=== PATIENT | female | born 1960 | race Caucasian/White ===

== ENCOUNTER 2023-06-25 22:50 | Inpatient (IN) | payer MEDICAID ==
[~2023-06-25] VITALS: Ht 167.6 cm; Wt 84.4 kg
[2023-06-25 22:56] VITALS: BP_SYST 131; PULSE 75; RESP 18; TEMP 96.5; O2SAT 95
[2023-06-25] MEDS ORDERED: NACL 0.9% 1,000 ML IV ONE (23:15)
[2023-06-26 01:05] LABS: BASOPHILS % (AUTO) 0.1 % (0.0-2.0); EOSINOPHILS % (AUTO) 0.1 % (0.0-4.0); HEMATOCRIT 35.5 % (36-48); HEMOGLOBIN 11.3 g/dL (12.0-16.0); LYMPHOCYTES # (AUTO) 1.1 K/uL (1.0-5.5); LYMPHOCYTES % (AUTO) 10.7 % (20.5-51.5); MEAN CORPUSCULAR HEMOGLOBIN 24 pg (27-31); MEAN CORPUSCULAR HGB CONC 32 % (32-36); MEAN CORPUSCULAR VOLUME 77 fL (79.0-98.0); MONOCYTES # (AUTO) 1.2 K/uL (0.0-1.0); MONOCYTES % (AUTO) 11.3 % (1.7-9.3); NEUTROPHILS # (AUTO) 8.3 K/uL (1.8-7.7); NEUTROPHILS % (AUTO) 77.8 % (40.0-70.0); PLATELET COUNT (AUTO) 190 K/uL (130-430); RED BLOOD CELL COUNT(AUTO) 4.63 MIL/uL (4.2-6.2); WHITE BLOOD COUNT (AUTO) 10.7 K/uL (4.8-10.8)
[2023-06-26] MEDS ORDERED: iohexoL 350 mgI/mL, 100 ML INFUS..BTL IV ONE (01:10)
[2023-06-26 01:57] LABS: ALANINE AMINOTRANSFERASE 108 U/L (12-78); ALBUMIN 2.6 g/dL (3.4-4.8); ANION GAP 15 (5-15); ASPARTATE AMINOTRANSFERASE 369 U/L (10-37); CALCIUM 7.7 mg/dL (8.4-11.0); CARBON DIOXIDE 19 mmol/L (23-29); CHLORIDE 93 mmol/L (98-107); CREATININE 1.79 mg/dL (0.55-1.30); GFR AFRICAN AMERICAN 37 mL/min (>90); GLUCOSE 88 mg/dL (74-106); POTASSIUM 3.9 mmol/L (3.5-5.1); SODIUM SERUM 127 mmol/L (136-145); TOTAL BILIRUBIN 0.6 mg/dL (0.0-1.0); TOTAL PROTEIN, SERUM 6.9 g/dL (6.4-8.3); UREA NITROGEN, BLOOD 48 mg/dL (8-21)
[2023-06-26 02:01] LABS: GFR NON AFRICAN-AMERICAN 30 mL/min (>90)
[2023-06-26] MEDS ORDERED: FLUT1DIS3 INH (05:40)
[2023-06-26] MEDS ORDERED: PANT20TA2 PO (05:49)
[2023-06-26] MEDS ORDERED: HYDR25TA4 PO (05:49)
[2023-06-26] MEDS ORDERED: GABA-534 PO (05:49)
[2023-06-26] MEDS ORDERED: HYDR-3927 PO (05:49)
[2023-06-26] MEDS ORDERED: BUPR-48 PO (05:49)
[2023-06-26] MEDS ORDERED: LEVO88TA5 PO (05:49)
[2023-06-26] MEDS ORDERED: ESTR0.623 PO (05:49)
[2023-06-26] MEDS ORDERED: METH-634 PO (05:49)
[2023-06-26] MEDS ORDERED: CEL20 PO (05:49)
[2023-06-26 09:39] LABS: INR 0.9 (0.8-1.2); PROTHROMBIN TIME 9.2 SECS (9.5-12.5)
[2023-06-26 09:54] LABS: CREATINE KINASE, TOTAL 6514 U/L (26-192)
[2023-06-26 09:57] LABS: ALCOHOL, BLOOD < 3 mg/dL (<10)
[2023-06-26 10:20] LABS: CKMB RELATIVE INDEX 0.4 (0.0-2.9); CREATINE KINASE MB 24.2 ng/mL (0-3.6)
[2023-06-26] MEDS ORDERED: ACETAMINOPHEN 325 MG TABLET PO PRN (10:45)
[2023-06-26] MEDS ORDERED: NALOXONE HCL 0.4 MG/ML AMP (NARCAN) IVP PRN (10:45)
[2023-06-26 11:41] LABS: ALBUMIN 2.7 g/dL (3.4-4.8); BILIRUBIN,DIRECT 0.2 mg/dL (0.0-0.3); TOTAL BILIRUBIN 0.5 mg/dL (0.0-1.0); TOTAL PROTEIN, SERUM 7.9 g/dL (6.4-8.3)
[2023-06-26 12:00] VITALS: BP_SYST 121; PULSE 73; RESP 18; TEMP 98.8; O2SAT 96
[2023-06-26 12:38] LABS: BILIRUBIN,URINE NEGATIVE (NEGATIVE); BLOOD, URINE 3+ (NEGATIVE); CLARITY/URINE Clear (CLEAR); COLOR,URINE YELLOW (YELLOW); GLUCOSE,URINE NEGATIVE (NEGATIVE); KETONES,URINE 1+ (NEGATIVE); LEUKOCYTE ESTERASE ,URINE NEGATIVE (NEGATIVE); NITRITE, URINE NEGATIVE (NEGATIVE); PH,URINE 5.5 (5.0-8.0); PROTEIN URINE 1+ (NEGATIVE); UROBILINOGEN,URINE 0.2 (0.2-1.0)
[2023-06-26 13:03] LABS: BACTERIA,URINE FEW /HPF (None Seen); WBC,URINE 0-3 /HPF (0-3)
[2023-06-26 13:10] VITALS: BP_SYST 121; PULSE 73; RESP 18; TEMP 98.8
[2023-06-26 13:21] LABS: BARBITURATE, URINE NEGATIVE (NEG <=200)
[2023-06-26 13:22] LABS: BENZODIAZEPINE, URINE NEGATIVE (NEG <=150); CANNABINOID, URINE NEGATIVE (NEG <=50); COCAINE, URINE NEGATIVE (NEG <=150); METHAMPHETAMINES SCREEN,URINE POSITIVE (NEG <=500); OPIATE, URINE POSITIVE (NEG <=100); PHENCYCLIDINE SCREEN,URINE NEGATIVE (NEG <=25); URINE AMPHETAMINE POSITIVE (NEG <=500); URINE METHADONE NEGATIVE (NEG <=200)
[2023-06-26 13:23] LABS: URINE OXYCODONE SCREEN NEGATIVE (NEG <=100); URINE PROPOXYPHENE SCREEN NEGATIVE (NEG <=300)
[2023-06-26 13:24] LABS: UR TRICYCLIC ANTIDEPRESSANTS NEGATIVE (NEG <=300)
[2023-06-26] MEDS: HYDROcodone/ACETAMIN 10-325 MG TAB PO PRN ×2 (14:11→21:06)
[2023-06-26] MEDS: D5NS 1,000 ML IV SCH ×2 (15:45→17:26)
[2023-06-26 16:00] VITALS: BP_SYST 122; PULSE 75; RESP 18; TEMP 98.6; O2SAT 97
[2023-06-26] MEDS ORDERED: ONDANSETRON HCL 4 MG/2 ML VIAL IVP PRN (18:30)
[2023-06-26 20:00] VITALS: BP_SYST 135; PULSE 71; RESP 18; TEMP 97.6; O2SAT 96
[2023-06-26 20:22] VITALS: BP_SYST 122; PULSE 75; O2SAT 97
[2023-06-26] MEDS ORDERED: FLUTICASONE 250 mCg/SALMETEROL 50 mCg DISKUS W.DEV INH SCH (21:00)
[2023-06-26] MEDS: methocarbamoL 500 MG TABLET PO SCH (21:06)
[2023-06-26] MEDS: GABAPENTIN 300 MG CAPSULE PO SCH (21:06)
[2023-06-26] MEDS: LORazepam 2 MG/ML VIAL IVP PRN (21:50)
[2023-06-27] MEDS: D5NS 1,000 ML IV SCH ×3 (01:45→20:51)
[2023-06-27] MEDS: HYDROcodone/ACETAMIN 10-325 MG TAB PO PRN ×4 (02:12→15:44)
[2023-06-27] MEDS: LEVOTHYROXINE SODIUM 0.088 MG TABLET PO SCH (06:26)
[2023-06-27] MEDS: BUDESONIDE 0.5 MG/2 ML AMPUL.NEB INH SCH ×2 (07:00→19:00)
[2023-06-27] MEDS: ALBUTEROL SULFATE 0.083% 2.5 MG/3 ML VIAL.NEB INH SCH ×3 (07:00→19:00)
[2023-06-27 07:44] VITALS: O2SAT 96
[2023-06-27 08:00] VITALS: BP_SYST 115; PULSE 69; RESP 16; TEMP 97.5; O2SAT 95
[2023-06-27] MEDS ORDERED: HYDROCHLOROTHIAZIDE 25 MG TABLET (HCTZ) PO SCH (09:00)
[2023-06-27] MEDS ORDERED: ESTROGENS,CONJUGATED 0.625 MG TABLET PO SCH (09:00)
[2023-06-27] MEDS: methocarbamoL 500 MG TABLET PO SCH ×2 (09:38→20:50)
[2023-06-27] MEDS: buPROPion HCL 150 MG XL TAB PO SCH (09:38)
[2023-06-27] MEDS: PANTOPRAZOLE SODIUM 40 MG TAB PO SCH (09:39)
[2023-06-27] MEDS: CITALOPRAM HYDROBROMIDE 20 MG TABLET PO SCH (09:39)
[2023-06-27] MEDS: GABAPENTIN 300 MG CAPSULE PO SCH ×2 (09:40→20:50)
[2023-06-27] MEDS: PREMARIN 0.625 MG PO SCH (09:50)
[2023-06-27 10:56] LABS: INR 0.9 (0.8-1.2); PROTHROMBIN TIME 9.1 SECS (9.5-12.5)
[2023-06-27 11:07] LABS: BASOPHILS % (AUTO) 0.2 % (0.0-2.0); EOSINOPHILS # (AUTO) 0.1 K/uL (0.0-0.4); EOSINOPHILS % (AUTO) 0.8 % (0.0-4.0); HEMATOCRIT 36.7 % (36-48); HEMOGLOBIN 11.6 g/dL (12.0-16.0); LYMPHOCYTES % (AUTO) 12.4 % (20.5-51.5); MEAN CORPUSCULAR HEMOGLOBIN 24 pg (27-31); MEAN CORPUSCULAR HGB CONC 32 % (32-36); MEAN CORPUSCULAR VOLUME 76 fL (79.0-98.0); MONOCYTES # (AUTO) 0.5 K/uL (0.0-1.0); MONOCYTES % (AUTO) 6.5 % (1.7-9.3); NEUTROPHILS # (AUTO) 6.4 K/uL (1.8-7.7); NEUTROPHILS % (AUTO) 80.1 % (40.0-70.0); PLATELET COUNT (AUTO) 198 K/uL (130-430); RED BLOOD CELL COUNT(AUTO) 4.81 MIL/uL (4.2-6.2); RED CELL DISTRIBUTION WIDTH 18.6 % (9.0-15.0)
[2023-06-27 11:12] LABS: ALBUMIN 2.5 g/dL (3.4-4.8); CALCIUM 8.8 mg/dL (8.4-11.0); CREATININE 0.8 mg/dL (0.55-1.30); PHOSPHORUS 1.6 mg/dL (2.7-4.5); POTASSIUM 3.5 mmol/L (3.5-5.1); TOTAL BILIRUBIN 0.5 mg/dL (0.0-1.0); TOTAL PROTEIN, SERUM 7.9 g/dL (6.4-8.3)
[2023-06-27 11:34] LABS: CKMB RELATIVE INDEX 0.3 (0.0-2.9); CREATINE KINASE MB 6.9 ng/mL (0-3.6)
[2023-06-27 12:00] VITALS: BP_SYST 126; PULSE 68; RESP 18; TEMP 97; O2SAT 95
[2023-06-27 12:06] LABS: HEPATITIS A AB, IgM Negative (Negative); HEPATITIS B CORE AB, IgM Negative (Negative); HEPATITIS B SURFACE AG Negative (Negative)
[2023-06-27] MEDS ORDERED: NA PHOS 15 MM in NS 250 ML IV ONE (14:30)
[2023-06-27 16:00] VITALS: BP_SYST 113; PULSE 63; RESP 18; TEMP 96.6; O2SAT 95
[2023-06-27 20:00] VITALS: BP_SYST 106; PULSE 63; TEMP 98.9; O2SAT 96
[2023-06-27] MEDS: TEMAZEPAM 15 MG CAPSULE PO PRN (20:49)
[2023-06-28] MEDS: HYDROcodone/ACETAMIN 10-325 MG TAB PO PRN ×4 (00:32→21:51)
[2023-06-28] MEDS: ALBUTEROL SULFATE 0.083% 2.5 MG/3 ML VIAL.NEB INH SCH ×4 (01:00→19:00)
[2023-06-28 01:19] VITALS: BP_SYST 98; PULSE 63; RESP 16; TEMP 97.1; O2SAT 96
[2023-06-28 05:50] LABS: BASOPHILS % (AUTO) 0.4 % (0.0-2.0); EOSINOPHILS # (AUTO) 0.1 K/uL (0.0-0.4); EOSINOPHILS % (AUTO) 1.6 % (0.0-4.0); HEMOGLOBIN 10.7 g/dL (12.0-16.0); LYMPHOCYTES # (AUTO) 1.8 K/uL (1.0-5.5); LYMPHOCYTES % (AUTO) 24.7 % (20.5-51.5); MEAN CORPUSCULAR HEMOGLOBIN 24 pg (27-31); MEAN CORPUSCULAR HGB CONC 32 % (32-36); MEAN CORPUSCULAR VOLUME 77 fL (79.0-98.0); MONOCYTES # (AUTO) 0.8 K/uL (0.0-1.0); MONOCYTES % (AUTO) 10.5 % (1.7-9.3); NEUTROPHILS # (AUTO) 4.7 K/uL (1.8-7.7); NEUTROPHILS % (AUTO) 62.8 % (40.0-70.0); PLATELET COUNT (AUTO) 210 K/uL (130-430); RED BLOOD CELL COUNT(AUTO) 4.44 MIL/uL (4.2-6.2); RED CELL DISTRIBUTION WIDTH 18.3 % (9.0-15.0); WHITE BLOOD COUNT (AUTO) 7.5 K/uL (4.8-10.8)
[2023-06-28] MEDS: LEVOTHYROXINE SODIUM 0.088 MG TABLET PO SCH (06:15)
[2023-06-28 06:24] LABS: CALCIUM 8.1 mg/dL (8.4-11.0); CREATININE 0.64 mg/dL (0.55-1.30); PHOSPHORUS 2.4 mg/dL (2.7-4.5); POTASSIUM 3.1 mmol/L (3.5-5.1)
[2023-06-28 06:53] LABS: CKMB RELATIVE INDEX 0.3 (0.0-2.9); CREATINE KINASE MB 2.6 ng/mL (0-3.6)
[2023-06-28] MEDS: BUDESONIDE 0.5 MG/2 ML AMPUL.NEB INH SCH ×2 (07:00→19:00)
[2023-06-28 08:00] VITALS: BP_SYST 108; PULSE 71; RESP 18; TEMP 98.4; O2SAT 97
[2023-06-28] MEDS: methocarbamoL 500 MG TABLET PO SCH ×2 (09:34→20:50)
[2023-06-28] MEDS: PANTOPRAZOLE SODIUM 40 MG TAB PO SCH (09:35)
[2023-06-28] MEDS: PREMARIN 0.625 MG PO SCH (09:35)
[2023-06-28] MEDS: GABAPENTIN 300 MG CAPSULE PO SCH ×3 (09:35→20:50)
[2023-06-28] MEDS: buPROPion HCL 150 MG XL TAB PO SCH (09:35)
[2023-06-28] MEDS: CITALOPRAM HYDROBROMIDE 20 MG TABLET PO SCH (09:35)
[2023-06-28 12:00] VITALS: BP_SYST 142; PULSE 67; RESP 16; TEMP 98.4; O2SAT 98
[2023-06-28 16:00] VITALS: BP_SYST 135; PULSE 67; RESP 16; TEMP 98.4; O2SAT 96
[2023-06-28] MEDS ORDERED: K PHOS 30 MM in NS 250 ML IV ONE (16:00)
[2023-06-28] MEDS: LORazepam 2 MG/ML VIAL IVP PRN ×2 (16:38→20:49)
[2023-06-28] MEDS: D5NS 1,000 ML IV SCH (16:52)
[2023-06-28 20:00] VITALS: BP_SYST 125; PULSE 67; RESP 18; TEMP 97.7; O2SAT 94
[2023-06-28 20:32] VITALS: O2SAT 96
[2023-06-28] MEDS: TEMAZEPAM 15 MG CAPSULE PO PRN (23:07)
[2023-06-29] VITALS (7 sets, daily range): BP systolic 125–158; PULSE 67–80; RESP 16–18; TEMP 94.6–99.1; O2SAT 94–98
[2023-06-29] MEDS: ALBUTEROL SULFATE 0.083% 2.5 MG/3 ML VIAL.NEB INH SCH ×3 (00:45→13:00)
[2023-06-29] MEDS: LORazepam 2 MG/ML VIAL IVP PRN ×4 (02:12→23:16)
[2023-06-29 05:47] LABS: BASOPHILS % (AUTO) 0.4 % (0.0-2.0); EOSINOPHILS # (AUTO) 0.1 K/uL (0.0-0.4); EOSINOPHILS % (AUTO) 1.3 % (0.0-4.0); HEMATOCRIT 33.3 % (36-48); HEMOGLOBIN 10.5 g/dL (12.0-16.0); LYMPHOCYTES # (AUTO) 2.1 K/uL (1.0-5.5); LYMPHOCYTES % (AUTO) 31.6 % (20.5-51.5); MEAN CORPUSCULAR HEMOGLOBIN 24 pg (27-31); MEAN CORPUSCULAR HGB CONC 32 % (32-36); MEAN CORPUSCULAR VOLUME 77 fL (79.0-98.0); MONOCYTES # (AUTO) 0.8 K/uL (0.0-1.0); MONOCYTES % (AUTO) 11.4 % (1.7-9.3); NEUTROPHILS # (AUTO) 3.7 K/uL (1.8-7.7); NEUTROPHILS % (AUTO) 55.3 % (40.0-70.0); PLATELET COUNT (AUTO) 196 K/uL (130-430); RED BLOOD CELL COUNT(AUTO) 4.36 MIL/uL (4.2-6.2); RED CELL DISTRIBUTION WIDTH 18.3 % (9.0-15.0); WHITE BLOOD COUNT (AUTO) 6.8 K/uL (4.8-10.8)
[2023-06-29 05:59] LABS: CREATININE 0.56 mg/dL (0.55-1.30); PHOSPHORUS 3.2 mg/dL (2.7-4.5); POTASSIUM 3.5 mmol/L (3.5-5.1)
[2023-06-29 06:37] LABS: CKMB RELATIVE INDEX 0.3 (0.0-2.9)
[2023-06-29] MEDS: LEVOTHYROXINE SODIUM 0.088 MG TABLET PO SCH (06:48)
[2023-06-29] MEDS: D5NS 1,000 ML IV SCH (06:49)
[2023-06-29] MEDS: BUDESONIDE 0.5 MG/2 ML AMPUL.NEB INH SCH (07:00)
[2023-06-29] MEDS: HYDROcodone/ACETAMIN 10-325 MG TAB PO PRN ×4 (07:02→20:44)
[2023-06-29] MEDS: PANTOPRAZOLE SODIUM 40 MG TAB PO SCH (08:16)
[2023-06-29] MEDS: ENOXAPARIN SODIUM 40 MG/0.4 ML SYRINGE SUBCUT SCH (08:17)
[2023-06-29] MEDS: methocarbamoL 500 MG TABLET PO SCH ×2 (08:17→20:44)
[2023-06-29] MEDS: CITALOPRAM HYDROBROMIDE 20 MG TABLET PO SCH (08:17)
[2023-06-29] MEDS: GABAPENTIN 300 MG CAPSULE PO SCH ×3 (08:17→20:43)
[2023-06-29] MEDS: buPROPion HCL 150 MG XL TAB PO SCH (08:17)
[2023-06-29] MEDS: PREMARIN 0.625 MG PO SCH (09:01)
[2023-06-29] MEDS ORDERED: LORazepam 2 MG/ML VIAL ONE (18:42)
[2023-06-29] MEDS: TEMAZEPAM 15 MG CAPSULE PO PRN (21:21)
[2023-06-30 00:47] VITALS: BP_SYST 149; PULSE 70; RESP 16; TEMP 97.1; O2SAT 98
[2023-06-30] MEDS: LORazepam 2 MG/ML VIAL IVP PRN ×5 (04:00→23:27)
[2023-06-30 05:30] LABS: BASOPHILS % (AUTO) 0.4 % (0.0-2.0); EOSINOPHILS # (AUTO) 0.2 K/uL (0.0-0.4); EOSINOPHILS % (AUTO) 1.6 % (0.0-4.0); HEMATOCRIT 33.9 % (36-48); HEMOGLOBIN 10.8 g/dL (12.0-16.0); LYMPHOCYTES # (AUTO) 2.8 K/uL (1.0-5.5); LYMPHOCYTES % (AUTO) 28.6 % (20.5-51.5); MEAN CORPUSCULAR HEMOGLOBIN 24 pg (27-31); MEAN CORPUSCULAR HGB CONC 32 % (32-36); MEAN CORPUSCULAR VOLUME 76 fL (79.0-98.0); MONOCYTES % (AUTO) 9.9 % (1.7-9.3); NEUTROPHILS # (AUTO) 5.8 K/uL (1.8-7.7); NEUTROPHILS % (AUTO) 59.5 % (40.0-70.0); PLATELET COUNT (AUTO) 208 K/uL (130-430); RED BLOOD CELL COUNT(AUTO) 4.45 MIL/uL (4.2-6.2); RED CELL DISTRIBUTION WIDTH 18.8 % (9.0-15.0); WHITE BLOOD COUNT (AUTO) 9.7 K/uL (4.8-10.8)
[2023-06-30 06:15] LABS: ALBUMIN 2.3 g/dL (3.4-4.8); CALCIUM 8.8 mg/dL (8.4-11.0); CREATININE 0.58 mg/dL (0.55-1.30); PHOSPHORUS 3.4 mg/dL (2.7-4.5); POTASSIUM 4.2 mmol/L (3.5-5.1); TOTAL BILIRUBIN 0.3 mg/dL (0.0-1.0); TOTAL PROTEIN, SERUM 6.2 g/dL (6.4-8.3)
[2023-06-30] MEDS: LEVOTHYROXINE SODIUM 0.088 MG TABLET PO SCH (06:40)
[2023-06-30 07:00] VITALS: BP_SYST 149; PULSE 71; RESP 18; TEMP 98.5; O2SAT 97
[2023-06-30] MEDS: BUDESONIDE 0.5 MG/2 ML AMPUL.NEB INH SCH ×2 (07:00→19:00)
[2023-06-30] MEDS: ALBUTEROL SULFATE 0.083% 2.5 MG/3 ML VIAL.NEB INH SCH ×3 (07:00→19:00)
[2023-06-30 08:17] LABS: CKMB RELATIVE INDEX 0.6 (0.0-2.9); CREATINE KINASE MB 1.2 ng/mL (0-3.6)
[2023-06-30] MEDS: GABAPENTIN 300 MG CAPSULE PO SCH ×3 (08:38→20:56)
[2023-06-30] MEDS: CITALOPRAM HYDROBROMIDE 20 MG TABLET PO SCH (08:38)
[2023-06-30] MEDS: PANTOPRAZOLE SODIUM 40 MG TAB PO SCH (08:38)
[2023-06-30] MEDS: ENOXAPARIN SODIUM 40 MG/0.4 ML SYRINGE SUBCUT SCH ×2 (08:39→08:50)
[2023-06-30] MEDS: HYDROcodone/ACETAMIN 5-325 MG TAB (NORCO/ VICODIN) PO PRN (08:48)
[2023-06-30] MEDS: PREMARIN 0.625 MG PO SCH (09:00)
[2023-06-30] MEDS: buPROPion HCL 150 MG XL TAB PO SCH (09:00)
[2023-06-30] MEDS: methocarbamoL 500 MG TABLET PO SCH ×2 (10:43→20:55)
[2023-06-30 11:30] VITALS: BP_SYST 138; PULSE 73; RESP 19; TEMP 98.9; O2SAT 95
[2023-06-30] MEDS: HYDROcodone/ACETAMIN 10-325 MG TAB PO PRN ×2 (13:55→20:56)
[2023-06-30 16:31] VITALS: BP_SYST 160; PULSE 72; RESP 18; TEMP 98.4; O2SAT 94
[2023-06-30 20:00] VITALS: BP_SYST 155; PULSE 73; RESP 16; TEMP 98.2; O2SAT 73; O2SAT 96
[2023-06-30] MEDS: TEMAZEPAM 15 MG CAPSULE PO PRN (20:55)
[2023-07-01] VITALS (8 sets, daily range): BP systolic 120–154; PULSE 70–96; RESP 16–20; TEMP 97.3–98.8; O2SAT 94–100
[2023-07-01] MEDS: ALBUTEROL SULFATE 0.083% 2.5 MG/3 ML VIAL.NEB INH SCH ×3 (01:00→13:00)
[2023-07-01] MEDS: HYDROcodone/ACETAMIN 10-325 MG TAB PO PRN ×4 (04:28→18:45)
[2023-07-01 05:10] LABS: BASOPHILS % (AUTO) 0.3 % (0.0-2.0); EOSINOPHILS # (AUTO) 0.1 K/uL (0.0-0.4); EOSINOPHILS % (AUTO) 1.2 % (0.0-4.0); HEMATOCRIT 35.8 % (36-48); HEMOGLOBIN 11.2 g/dL (12.0-16.0); LYMPHOCYTES # (AUTO) 2.8 K/uL (1.0-5.5); LYMPHOCYTES % (AUTO) 25.7 % (20.5-51.5); MEAN CORPUSCULAR HEMOGLOBIN 24 pg (27-31); MEAN CORPUSCULAR HGB CONC 31 % (32-36); MEAN CORPUSCULAR VOLUME 77 fL (79.0-98.0); MONOCYTES # (AUTO) 0.9 K/uL (0.0-1.0); MONOCYTES % (AUTO) 8.3 % (1.7-9.3); NEUTROPHILS # (AUTO) 6.9 K/uL (1.8-7.7); NEUTROPHILS % (AUTO) 64.5 % (40.0-70.0); PLATELET COUNT (AUTO) 218 K/uL (130-430); RED BLOOD CELL COUNT(AUTO) 4.64 MIL/uL (4.2-6.2); RED CELL DISTRIBUTION WIDTH 18.6 % (9.0-15.0); WHITE BLOOD COUNT (AUTO) 10.7 K/uL (4.8-10.8)
[2023-07-01 05:19] LABS: CALCIUM 9.1 mg/dL (8.4-11.0); CREATININE 0.61 mg/dL (0.55-1.30); POTASSIUM 3.9 mmol/L (3.5-5.1)
[2023-07-01] MEDS: LORazepam 2 MG/ML VIAL IVP PRN ×4 (05:32→20:02)
[2023-07-01] MEDS: LEVOTHYROXINE SODIUM 0.088 MG TABLET PO SCH (06:06)
[2023-07-01] MEDS: BUDESONIDE 0.5 MG/2 ML AMPUL.NEB INH SCH (07:00)
[2023-07-01] MEDS: HYDROcodone/ACETAMIN 5-325 MG TAB (NORCO/ VICODIN) PO PRN ×2 (09:23→11:21)
[2023-07-01] MEDS: methocarbamoL 500 MG TABLET PO SCH ×2 (09:52→20:02)
[2023-07-01] MEDS: CITALOPRAM HYDROBROMIDE 20 MG TABLET PO SCH (09:52)
[2023-07-01] MEDS: GABAPENTIN 300 MG CAPSULE PO SCH ×3 (09:52→20:02)
[2023-07-01] MEDS: PANTOPRAZOLE SODIUM 40 MG TAB PO SCH (09:53)
[2023-07-01] MEDS: ENOXAPARIN SODIUM 40 MG/0.4 ML SYRINGE SUBCUT SCH (09:53)
[2023-07-01] MEDS: PREMARIN 0.625 MG PO SCH (09:54)
[2023-07-01] MEDS: buPROPion HCL 150 MG XL TAB PO SCH (11:15)
[2023-07-01] MEDS: TEMAZEPAM 15 MG CAPSULE PO PRN (22:59)
[2023-07-02] MEDS: HYDROcodone/ACETAMIN 10-325 MG TAB PO PRN ×5 (00:51→23:19)
[2023-07-02 02:02] VITALS: BP_SYST 141; PULSE 69; RESP 18; TEMP 97.4; O2SAT 94
[2023-07-02] MEDS: LORazepam 2 MG/ML VIAL IVP PRN ×3 (02:39→20:57)
[2023-07-02 06:10] LABS: BASOPHILS % (AUTO) 0.4 % (0.0-2.0); EOSINOPHILS # (AUTO) 0.2 K/uL (0.0-0.4); EOSINOPHILS % (AUTO) 2.5 % (0.0-4.0); HEMATOCRIT 34.5 % (36-48); HEMOGLOBIN 10.9 g/dL (12.0-16.0); LYMPHOCYTES # (AUTO) 2.4 K/uL (1.0-5.5); MEAN CORPUSCULAR HEMOGLOBIN 24 pg (27-31); MEAN CORPUSCULAR HGB CONC 32 % (32-36); MEAN CORPUSCULAR VOLUME 77 fL (79.0-98.0); MONOCYTES # (AUTO) 0.8 K/uL (0.0-1.0); MONOCYTES % (AUTO) 8.7 % (1.7-9.3); NEUTROPHILS # (AUTO) 5.3 K/uL (1.8-7.7); NEUTROPHILS % (AUTO) 60.4 % (40.0-70.0); PLATELET COUNT (AUTO) 201 K/uL (130-430); RED BLOOD CELL COUNT(AUTO) 4.48 MIL/uL (4.2-6.2); RED CELL DISTRIBUTION WIDTH 18.7 % (9.0-15.0); WHITE BLOOD COUNT (AUTO) 8.7 K/uL (4.8-10.8)
[2023-07-02] MEDS: BUDESONIDE 0.5 MG/2 ML AMPUL.NEB INH SCH (07:00)
[2023-07-02] MEDS: ALBUTEROL SULFATE 0.083% 2.5 MG/3 ML VIAL.NEB INH SCH ×2 (07:00→13:00)
[2023-07-02] MEDS: LEVOTHYROXINE SODIUM 0.088 MG TABLET PO SCH (07:02)
[2023-07-02 07:23] LABS: ALBUMIN 2.4 g/dL (3.4-4.8); CALCIUM 8.8 mg/dL (8.4-11.0); CREATININE 0.7 mg/dL (0.55-1.30); PHOSPHORUS 4.1 mg/dL (2.7-4.5); POTASSIUM 4.1 mmol/L (3.5-5.1); TOTAL BILIRUBIN 0.2 mg/dL (0.0-1.0); TOTAL PROTEIN, SERUM 6.2 g/dL (6.4-8.3)
[2023-07-02 08:37] VITALS: BP_SYST 140; PULSE 71; RESP 16; TEMP 97.5; O2SAT 94
[2023-07-02 09:07] LABS: HEPATITIS C VIRUS AB Reactive (Non Reactive)
[2023-07-02] MEDS: methocarbamoL 500 MG TABLET PO SCH ×2 (09:19→20:55)
[2023-07-02] MEDS: GABAPENTIN 300 MG CAPSULE PO SCH ×3 (09:20→20:55)
[2023-07-02] MEDS: buPROPion HCL 150 MG XL TAB PO SCH (09:20)
[2023-07-02] MEDS: CITALOPRAM HYDROBROMIDE 20 MG TABLET PO SCH (09:20)
[2023-07-02] MEDS: PANTOPRAZOLE SODIUM 40 MG TAB PO SCH (09:20)
[2023-07-02] MEDS: ENOXAPARIN SODIUM 40 MG/0.4 ML SYRINGE SUBCUT SCH (09:21)
[2023-07-02] MEDS: PREMARIN 0.625 MG PO SCH (09:42)
[2023-07-02 13:33] VITALS: BP_SYST 140; PULSE 71; O2SAT 94
[2023-07-02 20:00] VITALS: BP_SYST 137; PULSE 77; RESP 18; TEMP 98.6; O2SAT 95
[2023-07-02] MEDS: TEMAZEPAM 15 MG CAPSULE PO PRN (23:18)
[2023-07-03 00:54] VITALS: BP_SYST 141; PULSE 70; RESP 16; TEMP 98; O2SAT 97
[2023-07-03] MEDS: ALBUTEROL SULFATE 0.083% 2.5 MG/3 ML VIAL.NEB INH SCH ×2 (01:00→07:00)
[2023-07-03 01:35] VITALS: O2SAT 97
[2023-07-03 05:26] LABS: BASOPHILS % (AUTO) 0.4 % (0.0-2.0); EOSINOPHILS # (AUTO) 0.2 K/uL (0.0-0.4); HEMOGLOBIN 10.7 g/dL (12.0-16.0); LYMPHOCYTES # (AUTO) 2.6 K/uL (1.0-5.5); LYMPHOCYTES % (AUTO) 33.3 % (20.5-51.5); MEAN CORPUSCULAR HEMOGLOBIN 25 pg (27-31); MEAN CORPUSCULAR HGB CONC 32 % (32-36); MEAN CORPUSCULAR VOLUME 78 fL (79.0-98.0); MONOCYTES # (AUTO) 0.7 K/uL (0.0-1.0); MONOCYTES % (AUTO) 9.1 % (1.7-9.3); NEUTROPHILS # (AUTO) 4.2 K/uL (1.8-7.7); NEUTROPHILS % (AUTO) 54.2 % (40.0-70.0); PLATELET COUNT (AUTO) 187 K/uL (130-430); RED BLOOD CELL COUNT(AUTO) 4.38 MIL/uL (4.2-6.2); RED CELL DISTRIBUTION WIDTH 19.4 % (9.0-15.0); WHITE BLOOD COUNT (AUTO) 7.8 K/uL (4.8-10.8)
[2023-07-03 05:59] LABS: CALCIUM 8.8 mg/dL (8.4-11.0); CREATININE 0.64 mg/dL (0.55-1.30); POTASSIUM 4.6 mmol/L (3.5-5.1)
[2023-07-03] MEDS: HYDROcodone/ACETAMIN 10-325 MG TAB PO PRN ×2 (06:13→12:07)
[2023-07-03] MEDS: LEVOTHYROXINE SODIUM 0.088 MG TABLET PO SCH (06:13)
[2023-07-03] MEDS: BUDESONIDE 0.5 MG/2 ML AMPUL.NEB INH SCH (07:00)
[2023-07-03 08:00] VITALS: BP_SYST 131; PULSE 66; RESP 16; TEMP 97.4; O2SAT 95
[2023-07-03 09:00] VITALS: O2SAT 95
[2023-07-03] MEDS: GABAPENTIN 300 MG CAPSULE PO SCH ×2 (09:01→14:42)
[2023-07-03] MEDS: CITALOPRAM HYDROBROMIDE 20 MG TABLET PO SCH (09:02)
[2023-07-03] MEDS: buPROPion HCL 150 MG XL TAB PO SCH (09:02)
[2023-07-03] MEDS: methocarbamoL 500 MG TABLET PO SCH (09:02)
[2023-07-03] MEDS: PANTOPRAZOLE SODIUM 40 MG TAB PO SCH (09:02)
[2023-07-03] MEDS: LORazepam 2 MG/ML VIAL IVP PRN ×2 (09:03→14:42)
[2023-07-03] MEDS: PREMARIN 0.625 MG PO SCH (09:03)
[2023-07-03] MEDS: ENOXAPARIN SODIUM 40 MG/0.4 ML SYRINGE SUBCUT SCH (09:03)
[2023-07-03] MEDS ORDERED: BUDESONIDE 0.5 MG/2 ML AMPUL.NEB INH PRN (09:45)
[2023-07-03 13:42] VITALS: BP_SYST 128; PULSE 75; RESP 15; TEMP 97.9; O2SAT 96
[2023-07-03 16:01] VITALS: BP_SYST 131; PULSE 77; RESP 16; TEMP 97.9; O2SAT 96
[2023-07-03] MEDS ORDERED: ALBUTEROL SULFATE 0.083% 2.5 MG/3 ML VIAL.NEB INH PRN (19:00)
== END 2023-07-03 17:20 | disposition home or self-care (01) | DRG 351 ==
LOC: SED 22:50 → SMU 06-26 06:01
PROVIDERS: ADMIT Preventive Medicine Preventive Medicine/Occupational Environmental Medicine; ATTEND Preventive Medicine Preventive Medicine/Occupational Environmental Medicine
PROC: 02HV33Z Insertion of Infusion Device into Superior Vena Cava, Percutaneous Approach (ICD-10-PCS; 2023-06-27)
PROC: B548ZZA Ultrasonography of Superior Vena Cava, Guidance (ICD-10-PCS; 2023-06-27)
PROC: 4A00X4Z Measurement of Central Nervous Electrical Activity, External Approach (ICD-10-PCS; principal; 2023-07-01)
DX: M62.82 Rhabdomyolysis (principal); N17.0 Acute kidney failure with tubular necrosis; E43 Unspecified severe protein-calorie malnutrition; M48.56XA Collapsed vertebra, not elsewhere classified, lumbar region, initial encounter for fracture; E83.51 Hypocalcemia; E83.39 Other disorders of phosphorus metabolism; E88.09 Other disorders of plasma-protein metabolism, not elsewhere classified; G82.20 Paraplegia, unspecified; E83.52 Hypercalcemia; E87.6 Hypokalemia; F32.9 Major depressive disorder, single episode, unspecified; I12.9 Hypertensive chronic kidney disease with stage 1 through stage 4 chronic kidney disease, or unspecified chronic kidney disease; K21.9 Gastro-esophageal reflux disease without esophagitis; E03.9 Hypothyroidism, unspecified; Z96.642 Presence of left artificial hip joint; G57.00 Lesion of sciatic nerve, unspecified lower limb; R74.01 Elevation of levels of liver transaminase levels; F15.90 Other stimulant use, unspecified, uncomplicated; D64.9 Anemia, unspecified; J44.9 Chronic obstructive pulmonary disease, unspecified; E78.5 Hyperlipidemia, unspecified; M51.36 Other intervertebral disc degeneration, lumbar region; G89.29 Other chronic pain; N18.31 Chronic kidney disease, stage 3a; Z88.8 Allergy status to other drugs, medicaments and biological substances; Z79.899 Other long term (current) drug therapy; Z85.43 Personal history of malignant neoplasm of ovary; Z89.511 Acquired absence of right leg below knee; Z90.710 Acquired absence of both cervix and uterus; Z68.30 Body mass index [BMI] 30.0-30.9, adult
CPT/HCPCS: 36415; 70551; 71045; 72148; 76376; 76700-TC; 80048; 80053; 80074; 80076; 80307; 81000; 82550; 82553; 83605; 83735; 84100; 84484; 85025; 85610-TC; 85730-TC; 87040; 87086; 93923; 94760; 95816; 96360; 97110-GP; 97112-GP; 97116-GP; 97530-GP; 99291; G0482; J1650; J2060; J7050; J7626; Q9967